=== PATIENT | male | born 1990 | race Caucasian/White ===

== ENCOUNTER 2020-12-20 09:58 | Emergency (ER) | payer MEDICAID ==
--- NOTE | 2020-12-20 11:03 | XRAY Report ---
PROCEDURE: Wrist 3 View RT INDICATIONS: trauma TECHNIQUE: 3 views of the wrist were acquired. COMPARISON: None FINDINGS: Bones: No suspicious bony lesions. There is a linear lucency through the scaphoid without displac ement. Remainder the osseous structures are unremarkable. Soft tissues: No suspicious soft tissue calcifications. IMPRESSION: Nondisplaced scaphoid fracture. Reviewed by: Lucio Dominique MD on 12/20/2020 10:02 AM NEGRO Approved by: Lucio Dominique MD on 12/20/2020 10:02 AM AKDT Station ID: [id number]
[2020-12-20 12:08] VITALS: BP 115/69
[2020-12-20] MEDS ORDERED: IBUPROFEN 800 MG TABLET PO STA (12:37)
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
== END 2020-12-20 13:05 | disposition home or self-care (01) ==
LOC: ED 09:58
DX: S62.001A Unspecified fracture of navicular [scaphoid] bone of right wrist, initial encounter for closed fracture (principal); V18.2XXA Unspecified pedal cyclist injured in noncollision transport accident in nontraffic accident, initial encounter; Y93.55 Activity, bike riding
CPT/HCPCS: 29125; 73110; 99283; 99284; A9270

== ENCOUNTER 2021-01-28 18:22 | Outpatient (CLI) | payer MEDICAID ==
--- NOTE | 2021-01-29 11:40 | XRAY Report ---
PROCEDURE: Wrist 3 View RT INDICATIONS: NONDISPLACED FX OF DISTAL POLE OF R NAVICULAR BONE TECHNIQUE: 3 views of the wrist were acquired. COMPARISON: Initial trauma plain films 12/20/2020 reviewed. FINDINGS: Bones: No previously unidentified fractures or dislocations. No suspicious bony lesions. There is blurring of the fracture margin, located at approximately the junction of the middle and distal third s of the navicular bone. There is slight malalignment by approximately 1 mm across the fracture plane . No sign of avascular necrosis involving the distal third of the navicular bone is found. Scaphoid view: No new injury identified. Soft tissues: No suspicious soft tissue calcifications. IMPRESSION: Presumed early healing of the navicular fracture that is transverse in orientation, with slight blurr ing of the fracture margin. No sign of avascular necrosis of the distal third of the scaphoid. Defini te osseous union is not yet established. Reviewed by: Bandar Clay MD on 01/29/2021 11:39 AM PDT Approved by: Bandar Clay MD on 01/29/2021 11:39 AM PDT Station ID: [id number]
== END 2021-01-28 23:59 | disposition home or self-care (01) ==
LOC: DI.N 18:22
PROVIDERS: ATTEND Orthopaedic Surgery
DX: S62.014D Nondisplaced fracture of distal pole of navicular [scaphoid] bone of right wrist, subsequent encounter for fracture with routine healing (principal)

== ENCOUNTER 2021-03-01 12:59 | Outpatient (CLI) | payer MEDICAID ==
--- NOTE | 2021-03-01 15:26 | XRAY Report ---
PROCEDURE: Wrist 3 View RT INDICATIONS: NONDISPLACED FX OF R WRIST TECHNIQUE: 3 views of the wrist were acquired. COMPARISON: 01/28/2021 FINDINGS: Bones: No acute fractures or dislocations. No suspicious bony lesions. Scaphoid view: Increased sclerosis and bridging callus across the mid scaphoid fracture is noted. Th e distal pole shows appropriate intensity. Normal bone mineral density present throughout Soft tissues: No suspicious soft tissue calcifications. IMPRESSION: Healing mid scaphoid fracture without evidence of avascular necrosis Reviewed by: Lucio Dominique MD on 03/01/2021 2:24 PM AKJESSICA Approved by: Lucio Dominique MD on 03/01/2021 2:24 PM AKDT Station ID: [id number]
== END 2021-03-01 13:00 ==
LOC: DI.N 12:59
PROVIDERS: ATTEND Orthopaedic Surgery
DX: S62.014A Nondisplaced fracture of distal pole of navicular [scaphoid] bone of right wrist, initial encounter for closed fracture (principal)